=== PATIENT | male | born 1945 | race Caucasian/White ===

== ENCOUNTER → 2018-04-23 09:50 | Outpatient (CLI) | payer MEDICARE, SELFPAY ==
[2018-04-24 10:34] LABS: Absolute Lymphocyte Count 1.51 X10^3/ul (0.83-4.51); Absolute Neutrophil Count 3.1 X10^3/uL (2.0-7.7); Basophil# 0.03 X10^3/uL; Basophil% 0.6 % (0-1); Eosinophil# 0.11 X10^3/uL; Eosinophils% 2.1 % (0-5); Hematocrit 43.1 % (40-54); Hemoglobin 13.2 g/dl (13.0-16.5); Lymphocyte # 1.51 X10^3/ul (4.0); Lymphocyte % 28.4 % (19-41); Mean Corp Hgb Conc 30.6 g/gl (32-36); Mean Corpuscular Hgb 23.7 pg (27.0-32.0); Mean Corpuscular Volume 77.2 fL (80-94); Monocyte% 11.3 % (0-10); Neutrophil # 3.05 X10^3/uL (2.7-7.7); Neutrophil % 57.4 % (47-70); Platelet Count 156 K/mm3 (150-450); RBC Distribution Width CV 15.7 % (11.6-14.6); RBC Distribution Width SD 44.2 fl (35.1-43.9); Red Blood Count 5.58 M/mm3 (4.6-6.2); White Blood Count 5.3 K/mm3 (4.4-11.0)
[2018-04-24 10:36] LABS: Differential Indicated SCAN CRITERIA MET; POSITIVE COUNT NO; POSITIVE DIFFERENTIAL NO; POSITIVE MORPHOLOGY YES
[2018-04-24 10:47] LABS: ALB/GLOB Ratio 1.1 RATIO (0.9-2.4); AST(SGOT) 21 U/L (15-37); Alanine Aminotransfer ALT/SGPT 22 U/L (16-61); Albumin, Serum 3.9 g/dL (3.2-5.0); Alkaline Phosphatase 136 U/L (45-117); Anion Gap 8 (5-15); BUN 24 mg/dL (7-18); BUN/Creat Ratio 25.6 RATIO (10-20); Calcium,Total 8.9 mg/dL (8.5-10.1); Chloride 107 mmol/L (98-107); Cholesterol 181 mg/dL (200); Creatinine, Serum 0.94 mg/dL (0.70-1.30); EST Glomerular Filtration Rate 85 mL/min (>60); Est Glom Filt Rate - Afr Amer 102 mL/min (>60); Globulin 3.4 g/dL (2.2-4.2); Glucose 84 mg/dL (74-106); High Density Lipoprotein 40 mg/dL; PSA,Total - Annual Screen 1.47 ng/mL (0.00-4.00); Potassium 4.2 mmol/L (3.5-5.1); Protein, Total 7.3 g/dL (6.4-8.2); Sodium Level 140 mmol/L (136-145); Triglycerides 197 mg/dL; Very Low Density Lipoprotein 39 mg/dL (5-40)
[2018-04-24 11:00] LABS: Microcytosis 1+; Platelet Estimate ADEQUATE (ADEQ); Platelet Morphology LARGE
== END ==
PROVIDERS: Referring Provider Nurse Practitioner; Visit Provider Nurse Practitioner
DX: E78.5 Hyperlipidemia, unspecified (principal); R35.0 Frequency of micturition; R56.9 Unspecified convulsions
CPT/HCPCS: 80053; 80061; 84153; 85025; G0103

== ENCOUNTER → 2019-04-23 22:01 | Outpatient (CLI) | payer MEDICARE, SELFPAY ==
[2019-04-23 16:40] VITALS: BMI 32.5
[2019-04-23 22:24] LABS: Absolute Lymphocyte Count 1.34 X10^3/uL (0.83-4.51); Absolute Neutrophil Count 5.1 X10^3/uL (2.0-7.7); Basophil# 0.06 X10^3/uL; Basophil% 0.8 % (0-1); Eosinophil# 0.32 X10^3/uL; Eosinophils% 4.2 % (0-5); Hematocrit 35.2 % (40-54); Hemoglobin 10.5 g/dL (13.0-16.5); Lymphocyte # 1.34 X10^3/ul (4.0); Lymphocyte % 17.6 % (19-41); Mean Corp Hgb Conc 29.8 g/dL (32-36); Mean Corpuscular Hgb 23.2 pg (27.0-32.0); Mean Corpuscular Volume 77.7 fL (80-94); Mean Platelet Vol. 11.1 fl (6.2-12.0); Monocyte# 0.76 X10^3/uL; NRBC Flagged by Analyzer 0 % (0-5); Neutrophil # 5.08 X10^3/uL (2.7-7.7); Neutrophil % 66.5 % (47-70); POSITIVE MORPHOLOGY YES; Platelet Count 209 K/mm3 (150-450); RBC Distribution Width SD 60.1 fl (35.1-43.9); Red Blood Count 4.53 M/mm3 (4.6-6.2); White Blood Count 7.6 K/mm3 (4.4-11.0)
[2019-04-23 22:25] LABS: Differential Indicated SCAN CRITERIA MET
[2019-04-23 22:36] LABS: AST(SGOT) 26 U/L (15-37); Alanine Aminotransfer ALT/SGPT 26 U/L (16-61); Albumin, Serum 3.5 g/dL (3.2-5.0); Alkaline Phosphatase 113 U/L (45-117); Anion Gap 4 (5-15); BUN 16 mg/dL (7-18); Chloride 109 mmol/L (98-107); EST Glomerular Filtration Rate 78 mL/min (>60); Est Glom Filt Rate - Afr Amer 95 mL/min (>60); Globulin 3.5 g/dL (2.2-4.2); Glucose 102 mg/dL (74-106); Potassium 4.3 mmol/L (3.5-5.1); Sodium Level 140 mmol/L (136-145)
[2019-04-23 22:43] LABS: Anisocytosis RARE; Hypochromasia RARE; Platelet Estimate ADEQUATE (ADEQ); Polychromasia RARE
[2019-04-23 22:44] LABS: Microcytosis RARE; Ovalocyte RARE; Target Cells RARE
== END ==
PROVIDERS: Family Provider Nurse Practitioner; PCP Nurse Practitioner; Visit Provider Nurse Practitioner
DX: D64.9 Anemia, unspecified (principal)
CPT/HCPCS: 80053; 85025

== ENCOUNTER → 2019-05-21 | Outpatient (CLI) | payer MEDICARE, SELFPAY ==
[2019-04-30 21:00] VITALS: BMI 32.5
[2019-05-22 01:46] LABS: Absolute Lymphocyte Count 1.33 X10^3/uL (0.83-4.51); Absolute Neutrophil Count 3.8 X10^3/uL (2.0-7.7); Basophil# 0.04 X10^3/uL; Basophil% 0.7 % (0-1); Eosinophil# 0.21 X10^3/uL; Eosinophils% 3.6 % (0-5); Hematocrit 46.1 % (40-54); Lymphocyte # 1.33 X10^3/ul (4.0); Lymphocyte % 22.7 % (19-41); Mean Corp Hgb Conc 30.4 g/dL (32-36); Mean Corpuscular Volume 82.5 fL (80-94); Monocyte# 0.45 X10^3/uL; Monocyte% 7.7 % (0-10); NRBC Flagged by Analyzer 0 % (0-5); Neutrophil # 3.82 X10^3/uL (2.7-7.7); Neutrophil % 65.1 % (47-70); POSITIVE MORPHOLOGY YES; Platelet Count 144 K/mm3 (150-450); RBC Distribution Width CV 22.1 % (11.6-14.6); RBC Distribution Width SD 65.4 fl (35.1-43.9); Red Blood Count 5.59 M/mm3 (4.6-6.2); White Blood Count 5.9 K/mm3 (4.4-11.0)
[2019-05-22 01:51] LABS: Differential Indicated SCAN CRITERIA MET
[2019-05-22 02:19] LABS: ALB/GLOB Ratio 1.3 RATIO (0.9-2.4); AST(SGOT) 17 U/L (15-37); Alanine Aminotransfer ALT/SGPT 18 U/L (16-61); Albumin, Serum 3.9 g/dL (3.2-5.0); Alkaline Phosphatase 133 U/L (45-117); Anion Gap 2 (5-15); BUN 16 mg/dL (7-18); BUN/Creat Ratio 15.7 RATIO (10-20); Calcium,Total 9.2 mg/dL (8.5-10.1); Chloride 110 mmol/L (98-107); Creatinine, Serum 1.02 mg/dL (0.70-1.30); EST Glomerular Filtration Rate 76 mL/min (>60); Est Glom Filt Rate - Afr Amer 92 mL/min (>60); Globulin 3.1 g/dL (2.2-4.2); Glucose 115 mg/dL (74-106); Potassium 4.5 mmol/L (3.5-5.1); Sodium Level 141 mmol/L (136-145)
[2019-05-22 02:34] LABS: Anisocytosis 1+; Differential Comment SCANNED
[2019-05-22 09:44] LABS: Vitamin B12 559 pg/mL (211-911)
== END ==
PROVIDERS: Family Provider Nurse Practitioner; PCP Nurse Practitioner; Referring Provider Nurse Practitioner; Visit Provider Nurse Practitioner
DX: D64.9 Anemia, unspecified (principal); R53.83 Other fatigue
CPT/HCPCS: 80053; 82607; 85025

== ENCOUNTER → 2020-06-05 | Outpatient (CLI) | payer MEDICARE, SELFPAY ==
[2020-06-05 15:11] VITALS: BMI 32.1
[2020-06-05 22:09] LABS: Absolute Lymphocyte Count 1.49 X10^3/uL (0.83-4.51); Absolute Neutrophil Count 3.7 X10^3/uL (2.0-7.7); Basophil# 0.05 X10^3/uL; Basophil% 0.9 % (0-1); Eosinophil# 0.13 X10^3/uL; Eosinophils% 2.2 % (0-5); Hematocrit 48.9 % (40-54); Hemoglobin 16.5 g/dL (13.0-16.5); Lymphocyte # 1.49 X10^3/ul (4.0); Lymphocyte % 25.6 % (19-41); Mean Corp Hgb Conc 33.7 g/dL (32-36); Mean Corpuscular Hgb 31.2 pg (27.0-32.0); Mean Corpuscular Volume 92.4 fL (80-94); Mean Platelet Vol. 12.4 fl (6.2-12.0); Monocyte# 0.46 X10^3/uL; Monocyte% 7.9 % (0-10); NRBC Flagged by Analyzer 0 % (0-5); Neutrophil # 3.69 X10^3/uL (2.7-7.7); Neutrophil % 63.2 % (47-70); Platelet Count 132 K/mm3 (150-450); RBC Distribution Width CV 13.3 % (11.6-14.6); RBC Distribution Width SD 45.3 fl (35.1-43.9); Red Blood Count 5.29 M/mm3 (4.6-6.2); White Blood Count 5.8 K/mm3 (4.4-11.0)
[2020-06-05 22:24] LABS: ALB/GLOB Ratio 1.3 RATIO (0.9-2.4); AST(SGOT) 22 U/L (15-37); Alanine Aminotransfer ALT/SGPT 28 U/L (16-61); Albumin, Serum 3.8 g/dL (3.2-5.0); Alkaline Phosphatase 133 U/L (45-117); Anion Gap 5 (5-15); BUN 16 mg/dL (7-18); BUN/Creat Ratio 15.4 RATIO (10-20); Chloride 110 mmol/L (98-107); Cholesterol 185 mg/dL (200); Creatinine, Serum 1.04 mg/dL (0.70-1.30); EST Glomerular Filtration Rate 74 mL/min (>60); Est Glom Filt Rate - Afr Amer 90 mL/min (>60); Globulin 2.9 g/dL (2.2-4.2); Glucose 115 mg/dL (74-106); High Density Lipoprotein 50 mg/dL; PSA,Total - Annual Screen 1.59 ng/mL (0.00-4.00); Protein, Total 6.7 g/dL (6.4-8.2); Sodium Level 143 mmol/L (136-145); Triglycerides 339 mg/dL; Very Low Density Lipoprotein 68 mg/dL (5-40)
== END | disposition home or self-care (01) ==
PROVIDERS: PCP Nurse Practitioner; Visit Provider Nurse Practitioner
DX: D64.9 Anemia, unspecified (principal); E78.5 Hyperlipidemia, unspecified; R35.0 Frequency of micturition; Z12.5 Encounter for screening for malignant neoplasm of prostate
CPT/HCPCS: 80053; 80061; 84153; 85025; G0103

== ENCOUNTER → 2021-06-14 | Outpatient (CLI) | payer MEDICARE, SELFPAY ==
[2021-06-14 22:04] LABS: Absolute Lymphocyte Count 1.52 X10^3/uL (0.83-4.51); Absolute Neutrophil Count 3.8 X10^3/uL (2.0-7.7); Basophil# 0.03 X10^3/uL; Basophil% 0.5 % (0-1); Eosinophil# 0.09 X10^3/uL; Eosinophils% 1.5 % (0-5); Hematocrit 47.6 % (40-54); Lymphocyte # 1.52 X10^3/ul (0.83-4.51); Lymphocyte % 25.7 % (19-41); Mean Corp Hgb Conc 33.6 g/dL (32-36); Mean Corpuscular Hgb 30.5 pg (27.0-32.0); Mean Corpuscular Volume 90.8 fL (80-94); Mean Platelet Vol. 11.7 fl (6.2-12.0); Monocyte# 0.49 X10^3/uL; Monocyte% 8.3 % (0-10); NRBC Flagged by Analyzer 0 % (0-5); Neutrophil # 3.78 X10^3/uL (2.7-7.7); Neutrophil % 63.8 % (47-70); Platelet Count 133 K/mm3 (150-450); RBC Distribution Width CV 13.5 % (11.6-14.6); RBC Distribution Width SD 45.7 fl (35.1-43.9); Red Blood Count 5.24 M/mm3 (4.6-6.2); White Blood Count 5.9 K/mm3 (4.4-11.0)
[2021-06-14 22:08] LABS: ALB/GLOB Ratio 1.2 RATIO (0.9-2.4); AST(SGOT) 20 U/L (15-37); Alanine Aminotransfer ALT/SGPT 29 U/L (16-61); Albumin, Serum 3.6 g/dL (3.2-5.0); Alkaline Phosphatase 130 U/L (45-117); Anion Gap 7 (5-15); BUN 19 mg/dL (7-18); Calcium,Total 9.2 mg/dL (8.5-10.1); Chloride 111 mmol/L (98-107); Cholesterol 181 mg/dL (200); Creatinine, Serum 1.27 mg/dL (0.70-1.30); EST Glomerular Filtration Rate 59 mL/min (>60); Est Glom Filt Rate - Afr Amer 71 mL/min (>60); Globulin 3.1 g/dL (2.2-4.2); Glucose 132 mg/dL (74-106); High Density Lipoprotein 40 mg/dL; PSA,Total - Annual Screen 1.56 ng/mL (0.00-4.00); Protein, Total 6.7 g/dL (6.4-8.2); Sodium Level 143 mmol/L (136-145); Triglycerides 279 mg/dL; Very Low Density Lipoprotein 56 mg/dL (5-40)
== END | disposition home or self-care (01) ==
PROVIDERS: PCP Nurse Practitioner; Referring Provider Nurse Practitioner; Visit Provider Nurse Practitioner
DX: E78.5 Hyperlipidemia, unspecified (principal); D50.9 Iron deficiency anemia, unspecified; R56.9 Unspecified convulsions; R35.0 Frequency of micturition; Z12.5 Encounter for screening for malignant neoplasm of prostate
CPT/HCPCS: 80053; 80061; 84153; 85025; G0103

== ENCOUNTER → 2024-06-11 | Outpatient (CLI) | payer SELFPAY ==
[2024-06-11 12:19] LABS: SERUM TEARS COLLECTION SPECIMEN PROCESSED
== END | disposition home or self-care (01) ==
LOC: LAB 10:16
PROVIDERS: PCP Family Medicine; Referring Provider Ophthalmology; Visit Provider Ophthalmology
DX: H04.123 Dry eye syndrome of bilateral lacrimal glands (principal)